=== PATIENT | female | born 1945 | race Caucasian/White ===

== ENCOUNTER 2020-08-26 09:28 | Observation (INO) | payer MEDICARE, SELFPAY ==
[2020-08-26] VITALS (8 sets, daily range): BP systolic 142–196; BP diastolic 63–101; PULSE 68–107; RESP 12–20; TEMP 35.3–37.1; O2SAT 95–98; BMI 24.0
--- NOTE | 2020-08-26 10:06 | XR_ITS ---
EXAMINATION: BILATERAL KNEE X-RAY CLINICAL INFORMATION: Fall COMPARISON: Left knee x-ray October 2013 TECHNIQUE: 4 views of each knee FINDINGS: Right: The bones are osteopenic. Bone alignment is normal. No fracture or dislocation is seen. There are small osteophytes at the patellofemoral joint. Joint spaces are otherwise normal. There is an osteophyte at the quadriceps tendon insertion to the patella. There is a small joint effusion. Left knee: The bones are osteopenic. Bone alignment is normal. No fracture or dislocation is seen. There are small osteophytes at the patellofemoral joint. There is no joint effusion. XR/XR knee RT 4V IMPRESSION: No fracture or dislocation seen. Osteopenia and degenerative changes.
--- NOTE | 2020-08-26 10:06 | XR_ITS ---
EXAMINATION: BILATERAL KNEE X-RAY CLINICAL INFORMATION: Fall COMPARISON: Left knee x-ray October 2013 TECHNIQUE: 4 views of each knee FINDINGS: Right: The bones are osteopenic. Bone alignment is normal. No fracture or dislocation is seen. There are small osteophytes at the patellofemoral joint. Joint spaces are otherwise normal. There is an osteophyte at the quadriceps tendon insertion to the patella. There is a small joint effusion. Left knee: The bones are osteopenic. Bone alignment is normal. No fracture or dislocation is seen. There are small osteophytes at the patellofemoral joint. There is no joint effusion. XR/XR knee LT 4V IMPRESSION: No fracture or dislocation seen. Osteopenia and degenerative changes.
--- NOTE | 2020-08-26 10:06 | ECG_ITS ---
Test Reason : RAPID HR Blood Pressure : / mmHG Vent. Rate : 106 BPM Atrial Rate : 147 BPM P-R Int : 224 ms QRS Dur : 084 ms QT Int : 356 ms P-R-T Axes : 074 017 060 degrees QTc Int : 472 ms Normal sinus rhythm with run of svt Anteroseptal infarct (cited on or before 18-AUG-2016) Abnormal ECG When compared with ECG of 21-DEC-2017 14:16, portion has Normal sinus rhythm and then goes into Multifocal atrial tachycardia Referred By: Yudelka Lyles Electronically Signed By:HIPOLITO VASQUEZ MD
--- NOTE | 2020-08-26 10:06 | CT_ITS ---
EXAMINATION: CT HEAD WITHOUT CONTRAST CLINICAL INFORMATION: Status post fall. Head injury. COMPARISON: None TECHNIQUE: Contiguous axial imaging was performed from the skull base to vertex without intravenous administration of contrast. This CT examination was performed using dose optimization techniques as appropriate, variously including the following: *Automated exposure control *Adjustment of mA and/or kV according to patient size (this includes techniques or standardized protocols for targeted exams where dose is matched to indication/reason for exam; i.e. extremities or head) *Use of iterative reconstruction technique DLP: 839 mGy-cm FINDINGS: There is no evidence of acute intracranial hemorrhage or territorial infarction. No abnormal mass effect or midline shift is seen. Frank to white matter differentiation is well preserved. No extra-axial fluid collections are identified. The lateral ventricles are symmetrical but moderately enlarged with mild dilatation of cortical sulci. There is diffuse periventricular hypodensity in both cerebral hemispheres without mass effect. The osseous structures and soft tissues are normal. The mastoid air cells and visualized portions of the paranasal sinuses are well aerated. CT/CT head/brain wo con IMPRESSION: No acute intracranial process seen. Cerebral atrophy with chronic small vessel ischemic changes in both cerebral hemispheres.
--- NOTE | 2020-08-26 10:06 | CT_ITS ---
EXAMINATION: CERVICAL SPINE CT WITHOUT CONTRAST CLINICAL INFORMATION: Fall COMPARISON: None TECHNIQUE: Axial images through the cervical spine without contrast. Sagittal and coronal reconstructions on the technologist workstation were performed. Patient dose 2 63 mg/cm. FINDINGS: The neck is extended. Bone alignment is otherwise normal. No fracture or dislocation is seen. There is degenerative spondylosis and degenerative disc disease at C3-C5-C6. There are degenerative changes at the C1 dens articulation. There is bilateral multilevel facet arthritis. Prevertebral soft tissues are normal. There is carotid calcification. There is biapical pleural and parenchymal scarring at the lung apices. CT/CT cervical spine wo con IMPRESSION: No fracture or dislocation seen. Degenerative changes.
[2020-08-26 11:39] LABS: Glucose Urine UA NEG (NEG); Leukocyte Esterase Urine 1+ (NEG); Nitrite Urine NEG (NEG); Urine Blood TRACE (NEG); Urine Ketones NEG (NEG); Urine Protein NEG (NEG-TRACE)
[2020-08-26 11:39] LABS: Basophils Absolute Auto 0.1 X10*3/uL (0.0-0.2); Basophils Percent Auto 0.7 % (0-2); Eosinophils Absolute Auto 0.3 X10*3/uL (0.0-0.4); Eosinophils Percent Auto 2.8 % (0-4); Hematocrit 41.6 % (37-47); Hemoglobin 13.7 g/dl (12.0-16.0); Imm Gran Abs Auto 0.02 X10*3/uL (0.00-0.03); Imm Gran Pct Auto 0.2 % (0.0-0.4); Lymphocytes Absolute Auto 1.5 X10*3/uL (1.2-4.9); MANUAL DIFF FLAG SCAN; Mean Corpuscular HGB Conc 32.9 g/dl (31.0-35.0); Mean Corpuscular Hemoglobin 31.4 pg (27.0-33.0); Mean Corpuscular Volume 95.4 fL (80-98); Monocytes Absolute Auto 0.6 X10*3/uL (0.1-1.2); Monocytes Percent Auto 6.4 % (2-11); Neutrophils Absolute Auto 6.5 X10*3/uL (2.0-8.3); Neutrophils Percent Auto 72.9 % (45-73); PLT CLUMP 1; Red Blood Count 4.36 X10*6/uL (4.20-5.50); Red Cell Distribution Width 12.6 % (11.0-16.0); SCAN SMEAR FLAG 1
[2020-08-26 11:42] LABS: Prothrombin Time 11.7 SEC (10.8-13.0)
[2020-08-26 11:52] LABS: Appearance Urine HAZY; Color Urine YELLOW
[2020-08-26 12:08] LABS: B Type Natriuretic Peptide 177 pg/mL (<100)
[2020-08-26 12:11] LABS: Alanine Aminotransferase 9 U/L (0-31); Albumin Level 3.6 g/dL (3.5-5.0); Alkaline Phosphatase 77 U/L (39-117); Anion Gap 15 (12-20); Aspartate Amino Transferase 20 U/L (5-31); Bilirubin Direct 0.3 mg/dL (0.0-0.5); Bilirubin Total 0.6 mg/dL (0.0-1.0); Blood Urea Nitrogen 15 mg/dL (9-16); Calcium 8.5 mg/dL (8.4-10.2); Carbon Dioxide 26 mmol/L (22-29); Chloride 105 mmol/L (96-108); Creatinine Clr Calc Pharmacy 48.1; Estimated Glomerular Filt Rate > 60; Glucose Random 93 mg/dL (60-115); Magnesium 1.9 mg/dL (1.6-2.6); Potassium 3.6 mmol/l (3.3-5.1); Sodium 142 mmol/L (135-145); Total Protein 7.7 g/dL (6.5-8.0)
[2020-08-26 12:14] LABS: Platelet Count 258 X10*3/uL (160-400)
[2020-08-26 12:15] LABS: SLIDE REVIEW VERIFIED
[2020-08-26 12:29] LABS: Bacteria Urine TRACE /LPF; RBC Urine 0-2 /HPF (0); Squamous Epithelial Cell Urine 1+ /LPF
--- NOTE | 2020-08-26 12:35 | ED.FALL ---
HPI - Fall General Chief Complaint: Fall Stated Complaint: fall, leg pain Time Seen by Provider: 08/26/20 09:49 Source: patient, EMS and other ([facility]mediate Records fro [facility]) Mode of arrival: EMS Limitations: other (Chronic history of dementia) History of Present Illness HPI Narrative: 75yoF c PMHx of vascular dementia, Churg yue syndrome, Atrial Tachycardia, HTN, HLD, Chronic back pain presenting via EMS after complaining of b/l leg pain to the Nurses at [facility]. I called and spoke to Monae from the [facility] and she reported that the patient was noted to be limping and was complaining of bilateral leg plane and told them that she had a fall. Monae From [facility] reported that she possibly had an unwitnessed fall over the weekend. Reports otherwise the patient for mentation has been at baseline. Patient is On aspirin otherwise no other blood thinners. Related Data Home Medications Medication Instructions Recorded Confirmed atorvastatin 1 tab PO DAILY 08/26/20 08/26/20 lisinopril 1 tab PO DAILY 08/26/20 08/26/20 metoprolol tartrate 1 tab PO BID 08/26/20 08/26/20 Allergies Allergy/AdvReac Type Severity Reaction Status Date / Time erythromycin base Allergy Mild VOMITING Unverified 06/18/20 14:49 [Erythromycin Base] Penicillins Allergy Mild HIVES Unverified 06/18/20 14:49 amoxicillin Allergy Unknown Verified 07/01/19 00:00 penicillin V Allergy Unknown Unverified 07/01/19 00:00 Biphosphonates Allergy Unknown Uncoded 07/01/19 00:00 Review of Systems Review of Systems: Constitutional : No changes in activity, No lethargy, No recent prior head injury, No agitation, No increased fussiness ENT/Mouth : No Ear Pain, No Nasal discharge/drainage Eyes: No Eye Pain, No Swelling, No Redness, No Foreign Body, No Vision Changes Cardiovascular : No Chest Pain, No SOB Respiratory : No Cough Gastrointestinal : No Nausea, No Vomiting, No abdominal Pain Genitourinary : No Dysuria, No Urinary Frequency, No Urinary Incontinence, No Urgency, No Flank Pain Musculoskeletal : + joint pain, No neck stiffness, No back pain/injury Skin : No lacerations Neuro : No unsteady gait, No Paresthesias, No Loss of Consciousness, No altered mental status, No Headache Yes all other systems are reviewed and are negative and Other ( Limited due to history of dementia) [facility] Past Medical History Attestation statement: The following information was validated with the patient. Medical History Dementia High cholesterol Hypertension Social History Social History Smoking Status: Never smoker Use of substances other than those prescribed or required for medical reasons: No Advance Directives: No Advance Directives Information Provided: Yes Physical Exam Vital Signs: Vital Signs: Last Vital Signs Temp 95.5 F L 08/26/20 14:00 Pulse 85 08/26/20 14:00 Resp 14 08/26/20 14:00 BP 178/73 H 08/26/20 14:00 Pulse Ox 98 08/26/20 11:48 Body Mass Index 24.0 Vital signs have been reviewed as normal and appeared to be correct. Blood pressure normal. Heart rate normal. Respiration rate normal. Temperature normal. Oxygen saturation normal. Appearance: Alert. Oriented to place and self not to time baseline per Intermediate. No acute distress. Head: Normal external exam. Normocephalic. Atraumatic. Able to rotate head bilaterally. Eyes: PERRLA. EOMI. No nystagmus noted. Conjunctiva and sclera normal. Eyelids normal. Corneal reflex normal. ENT: EAC normal. TM's Normal. no septal hematoma noted. No hemotympanum noted.Hearing normal. Pharynx normal. Uvula midline. tongue midline. Moist mucous membranes. No trismus noted. No drooling noted. No muffled voice noted. Neck: Normal inspection. Neck supple. FROM. No adenopathy. No meningeal signs. No neck mass noted. CVS: Normal heart rate and rhythm. Heart sound normal. No murmurs noted. Pulses normal throughout. Respiratory: No respiratory distress. Painless inspiration. Breath sounds normal. No wheezes/rales/rhonchi noted. Chest nontender. No accessory muscle usage noted or decreased air movement noted. Abdomen: Soft and nontender. Bowel sounds normal in all 4 quadrants. No distention noted. No organomegaly noted. No visible injury noted. Back: No CVA tenderness. Full range of motion noted. Skin: Skin warm and dry. Normal skin color. Normal skin turgor. No rashes/lesions/lacerations noted. Extremities: to right knee there is an abrasion c well healing scab. No surrounding erythema/ streaking /induration /fluctuance or signs of infection noted. TTP of left knee No obvious deformities noted. TTP of right ankle No obvious deformities noted. No lower extremity edema. All Extremities exhibit normal range of motion and all other's nontender. Able to shrug shoulders bilaterally and keep up against resistance. Neuro: Oriented. No motor deficit. No sensory deficit. Reflexes normal. Moving all extremities. No focal motor deficits. Cranial nerves II-XI intact bilaterally. Facial strength normal. Normal cognition. Speech normal. Strength 5/5 throughout. No pronator drift. No tremor noted. No fasciculations noted. Muscle tone normal throughout. No asterixis noted. [id number] test normal. Heel to rosen test normal. No rigidity noted. NIHSS score 0. Course Course Course Narrative: 10:10AM - 75yoF c PMHx of vascular dementia, Churg yue syndrome, Atrial Tachycardia, HTN, HLD, Chronic back pain presenting via EMS after complaining of b/l leg pain to the Nurses at [facility] after Sustaining an unwitnessed fall possibly over the weekend. Per skilled nursing records patient is at baseline. Patient denies any other injuries complaints or concerns at this time. - Plan: Labs, CT scan of brain/cervical spine, CTA of chest due to episodes of Tachycardia and unwitnessed fall to rule out PE or any other acute processes, CXR, EKG, Xray of b/l hips/pelvis, b/l knees and right ankle and re-evaluate. Reevaluation(s) Reevaluation #1: - Patient's troponin elevated at 11.9. BUN 177. Otherwise all other labs are within normal limits. UA within normal limits no evidence of UTI. CT scan of brain/cervical spine within normal limits no acute processes noted. CTA of chest negative for PE revealed old chronic fractures to her spine. X-ray of bilateral hips and pelvis / bilateral knees / right ankle within normal limits no acute processes noted. EKG sinus tachycardia no acute ischemic changes. - Therefore repeat troponin 3 hours after the 1st ordered. If negative will DC home with instructions return if any new or worsening symptoms and to follow up with primary care provider. Time: 14:02 Reevaluation #2: Second troponin 21.0 therefore CPK added at this time for possible rhabdo. We will plan to admit due to unknown cause of the patient's fall which could be related to her episodes of atrial tachycardia where she goes up to 160 beats per minute where we have noticed on the surveillance monitor here in the ED. Time: 16:46 MDM - Fall Medical Records Attestation: I reviewed the patient's medical records. Lab Data Attestation: I reviewed the patient's lab results. Result diagrams: 08/26/20 11:08/26/20 11: Labs: Lab Results 08/26/20 08/26/20 08/26/20 Range/Units 11:23 11: 11: WBC 9.0 (4.8-10.8) X10*3/uL RBC 4.36 (4.20-5.50) X10*6/uL Hgb 13.7 (12.0-16.0) g/dl Hct 41.6 (37-47) % MCV 95.4 (80-98) fL MCH 31.4 (27.0-33.0) pg MCHC 32.9 (31.0-35.0) g/dl RDW 12.6 (11.0-16.0) % Plt Count 258 (160-400) X10*3/uL MPV Not Reportable Immature Gran % (Auto) 0.2 (0.0-0.4) % Neut % (Auto) 72.9 (45-73) % Lymph % (Auto) 17.0 L (20-40) % Jewell % (Auto) 6.4 (2-11) % Eos % (Auto) 2.8 (0-4) % Baso % (Auto) 0.7 (0-2) % Lymph # (Auto) 1.5 (1.2-4.9) X10*3/uL Jewell # (Auto) 0.6 (0.1-1.2) X10*3/uL Eos # (Auto) 0.3 (0.0-0.4) X10*3/uL Baso # (Auto) 0.1 (0.0-0.2) X10*3/uL Abs Immat Gran (auto) 0.02 (0.00-0.03) X10*3/uL Absolute Neuts (auto) 6.5 (2.0-8.3) X10*3/uL Absolute Nucleated RBC 0.000 (0.0-0.012) X10*3/uL Nucleated RBC % (auto) 0.0 (0.0-0.2) /100WBC Smear Tech's Comments VERIFIED PT 11.7 (10.8-13.0) SEC INR 1.0 (0.9-1.1) Sodium 142 (135-145) mmol/L Potassium 3.6 (3.3-5.1) mmol/l Chloride 105 (96-108) mmol/L Carbon Dioxide 26 (22-29) mmol/L Anion Gap 15 (12-20) BUN 15 (9-16) mg/dL Creatinine 0.81 (0.5-1.4) mg/dL Estim Creat Clear Calc 48.1 Estimated GFR > 60 Random Glucose 93 (60-115) mg/dL Calcium 8.5 (8.4-10.2) mg/dL Magnesium 1.9 (1.6-2.6) mg/dL Total Bilirubin 0.6 (0.0-1.0) mg/dL Direct Bilirubin 0.3 (0.0-0.5) mg/dL AST 20 (5-31) U/L ALT 9 (0-31) U/L Alkaline Phosphatase 77 (39-117) U/L Total Creatine Kinase 370 H (26-140) U/L Troponin I High Sens (<3.5-17.0) ng/L B-Natriuretic Peptide (<100) pg/mL Total Protein 7.7 (6.5-8.0) g/dL Albumin 3.6 (3.5-5.0) g/dL Urine Color Urine Appearance Urine pH (5.0-8.0) Ur Specific [place] (1.005-1.025) Urine Protein (NEG-TRACE) MG/DL Urine Glucose (UA) (NEG) MG/DL Urine Ketones (NEG) MG/DL Urine Blood (NEG) Urine Nitrite (NEG) Ur Leukocyte Esterase (NEG) Urine RBC (0) /HPF Urine WBC (0-4) /HPF Ur Squamous Epith Cells /LPF Urine Bacteria /LPF 08/26/20 08/26/20 08/26/20 Range/Units 11:23 11:29 15:58 WBC (4.8-10.8) X10*3/uL RBC (4.20-5.50) X10*6/uL Hgb (12.0-16.0) g/dl Hct (37-47) % MCV (80-98) fL MCH (27.0-33.0) pg MCHC (31.0-35.0) g/dl RDW (11.0-16.0) % Plt Count (160-400) X10*3/uL MPV Immature Gran % (Auto) (0.0-0.4) % Neut % (Auto) (45-73) % Lymph % (Auto) (20-40) % Jewell % (Auto) (2-11) % Eos % (Auto) (0-4) % Baso % (Auto) (0-2) % Lymph # (Auto) (1.2-4.9) X10*3/uL Jewell # (Auto) (0.1-1.2) X10*3/uL Eos # (Auto) (0.0-0.4) X10*3/uL Baso # (Auto) (0.0-0.2) X10*3/uL Abs Immat Gran (auto) (0.00-0.03) X10*3/uL Absolute Neuts (auto) (2.0-8.3) X10*3/uL Absolute Nucleated RBC (0.0-0.012) X10*3/uL Nucleated RBC % (auto) (0.0-0.2) /100WBC Smear Tech's Comments PT (10.8-13.0) SEC INR (0.9-1.1) Sodium (135-145) mmol/L Potassium (3.3-5.1) mmol/l Chloride (96-108) mmol/L Carbon Dioxide (22-29) mmol/L Anion Gap (12-20) BUN (9-16) mg/dL Creatinine (0.5-1.4) mg/dL Estim Creat Clear Calc Estimated GFR Random Glucose (60-115) mg/dL Calcium (8.4-10.2) mg/dL Magnesium (1.6-2.6) mg/dL Total Bilirubin (0.0-1.0) mg/dL Direct Bilirubin (0.0-0.5) mg/dL AST (5-31) U/L ALT (0-31) U/L Alkaline Phosphatase (39-117) U/L Total Creatine Kinase (26-140) U/L Troponin I High Sens 11.9 21.0 H D (<3.5-17.0) ng/L B-Natriuretic Peptide 177 H (<100) pg/mL Total Protein (6.5-8.0) g/dL Albumin (3.5-5.0) g/dL Urine Color YELLOW Urine Appearance HAZY Urine pH 7.0 (5.0-8.0) Ur Specific [place] 1.010 (1.005-1.025) Urine Protein NEG (NEG-TRACE) MG/DL Urine Glucose (UA) NEG (NEG) MG/DL Urine Ketones NEG (NEG) MG/DL Urine Blood TRACE (NEG) Urine Nitrite NEG (NEG) Ur Leukocyte Esterase 1+ H (NEG) Urine RBC 0-2 (0) /HPF Urine WBC 1-4 (0-4) /HPF Ur Squamous Epith Cells 1+ /LPF Urine Bacteria TRACE /LPF Imaging Data Right ankle x-ray: Attestation: I personally reviewed and interpreted this imaging study as follows: Radiologist's impression: FINDINGS: Bone alignment is normal. No fracture or dislocation is seen. The ankle mortise is normal. Soft tissues are normal. There is a peripheral small plantar calcaneal spur. XR/XR ankle RT min 3V IMPRESSION: Normal right ankle. hip and pelvis x-ray: Attestation: I personally reviewed and interpreted this imaging study as follows: Radiologist's impression: FINDINGS: Bone alignment is normal. No fracture or dislocation is seen. The joint spaces are normal. The soft tissues are normal. There is evidence of atherosclerotic disease. XR/XR hip BI w PEL1V IMPRESSION: Normal pelvis and hips. CT scan of brain: Attestation: I personally reviewed and interpreted this imaging study as follows: Radiologist's impression: FINDINGS: There is no evidence of acute intracranial hemorrhage or territorial infarction. No abnormal mass effect or midline shift is seen. Frank to white matter differentiation is well preserved. No extra-axial fluid collections are identified. The lateral ventricles are symmetrical but moderately enlarged with mild dilatation of cortical sulci. There is diffuse periventricular hypodensity in both cerebral hemispheres without mass effect. The osseous structures and soft tissues are normal. The mastoid air cells and visualized portions of the paranasal sinuses are well aerated. CT/CT head/brain wo con IMPRESSION: No acute intracranial process seen. Cerebral atrophy with chronic small vessel ischemic changes in both cerebral hemispheres. cervical spine ct scan : Attestation: I personally reviewed and interpreted this imaging study as follows: Radiologist's impression: FINDINGS: The neck is extended. Bone alignment is otherwise normal. No fracture or dislocation is seen. There is degenerative spondylosis and degenerative disc disease at C3-C5-C6. There are degenerative changes at the C1 dens articulation. There is bilateral multilevel facet arthritis. Prevertebral soft tissues are normal. There is carotid calcification. There is biapical pleural and parenchymal scarring at the lung apices. CT/CT cervical spine wo con IMPRESSION: No fracture or dislocation seen. Degenerative changes. Chest CTA for PE: Attestation: I personally reviewed and interpreted this imaging study as follows: Radiologist's impression: IMPRESSION: No evidence of PE. No evidence of aortic dissection or aneurysm. Old compression fractures L1 and L2 vertebra. VTE: negative. knee xray: Attestation: I personally reviewed and interpreted this imaging study as follows: Radiologist's impression: FINDINGS: Right: The bones are osteopenic. Bone alignment is normal. No fracture or dislocation is seen. There are small osteophytes at the patellofemoral joint. Joint spaces are otherwise normal. There is an osteophyte at the quadriceps tendon insertion to the patella. There is a small joint effusion. Left knee: The bones are osteopenic. Bone alignment is normal. No fracture or dislocation is seen. There are small osteophytes at the patellofemoral joint. There is no joint effusion. XR/XR knee LT 4V IMPRESSION: No fracture or dislocation seen. Osteopenia and degenerative changes. ECG Data Attestation: I personally reviewed and interpreted this ECG as follows: ECG interpretation date: 08/26/20 ECG interpretation time: 09:44 Prior ECG tracings: available for review Interpretation: Sinus tachycardia with first-degree AV block with ventricular rate of 106 with a normal QRS duration normal QT / QTC interval. No acute ischemic changes noted. Similar when compared to prior on 12/21/2017. Critical Care Time Critical Care Time Critical Care Time: Yes Total Critical Care Time: 60 Attestation: I personally attest to this time spent taking care of the patient Discharge Plan Discharge Clinical Impression: Elevated troponin Fall Qualifiers: Encounter type: initial encounter Qualified Code(s): W19.XXXA - Unspecified fall, initial encounter Abrasion of knee Qualifiers: Encounter type: initial encounter Laterality: right Qualified Code(s): S80.211A - Abrasion, right knee, initial encounter Ankle sprain Qualifiers: Encounter type: initial encounter Involved ligament of ankle: unspecified ligament Laterality: right Qualified Code(s): S93.401A - Sprain of unspecified ligament of right ankle, initial encounter Knee sprain Qualifiers: Encounter type: initial encounter Involved ligament of knee: unspecified ligament Laterality: right Qualified Code(s): S83.91XA - Sprain of unspecified site of right knee, initial encounter Prescriptions: No Action atorvastatin 10 mg tablet 1 tab PO DAILY RF: 0 lisinopril 5 mg tablet 1 tab PO DAILY RF: 0 metoprolol tartrate 25 mg tablet 1 tab PO BID RF: 0
--- NOTE | 2020-08-26 12:53 | PC.NURSE ---
pt's son (iván) is in [facility] [place] room and he was updated on pt's status. mlp (willie) aware.
--- NOTE | 2020-08-26 13:00 | XR_ITS ---
EXAMINATION: XR BILATERAL HIPS WITH AP PELVIS CLINICAL INFORMATION: Fall. Limping. COMPARISON: Previous left hip x-ray October 2018 TECHNIQUE: AP view of the pelvis and 2 views of each hip were obtained. FINDINGS: Bone alignment is normal. No fracture or dislocation is seen. The joint spaces are normal. The soft tissues are normal. There is evidence of atherosclerotic disease. XR/XR hip BI w PEL1V IMPRESSION: Normal pelvis and hips.
--- NOTE | 2020-08-26 13:01 | XR_ITS ---
EXAMINATION: XR ANKLE, RIGHT CLINICAL INFORMATION: Fall. Pain. COMPARISON: None TECHNIQUE: AP, lateral, and mortise views of the right ankle. FINDINGS: Bone alignment is normal. No fracture or dislocation is seen. The ankle mortise is normal. Soft tissues are normal. There is a peripheral small plantar calcaneal spur. XR/XR ankle RT min 3V IMPRESSION: Normal right ankle.
--- NOTE | 2020-08-26 13:15 | CT_ITS ---
EXAMINATION: CT ANGIOGRAM OF THE CHEST WITH AND WITHOUT CONTRAST (CT PULMONARY ANGIOGRAM FOR PE) CLINICAL INFORMATION: Reason for Exam pt c fall c tachyacrdia and weakness COMPARISON: None TECHNIQUE: Prior to contrast administration, noncontrast localization images were obtained. Subsequently, multidetector volumetric imaging was performed from the thoracic inlet to below the diaphragms following the administration of 80 mL Omnipaque 350 intravenous contrast. No contrast reaction reported Sagittal, coronal, and MIP oblique sagittal reformatted images were obtained on the CT workstation, uploaded to PACS, and reviewed. This CT examination was performed using dose optimization techniques as appropriate, variously including the following: *Automated exposure control *Adjustment of mA and/or kV according to patient size (this includes techniques or standardized protocols for targeted exams where dose is matched to indication/reason for exam; i.e. extremities or head) *Use of iterative reconstruction technique Total exam dose-length product 220 mGy-cm FINDINGS: QUALITY OF STUDY/CONTRAST BOLUS: Satisfactory. PULMONARY ARTERIES: No central or segmental pulmonary emboli. THORACIC AORTA: No aneurysm or dissection. LUNG: No focal consolidation, nodules or masses. PLEURA: No pleural effusion or pneumothorax. MEDIASTINUM: The thyroid lobes are symmetrical and normal. The central trachea and bronchi widely patent. The heart size and the great vessels are normal caliber. No abnormal size medial mass or lymph node seen. There is atherosclerotic calcification coronary arteries. CHEST WALL/AXILLA: No axillary or internal mammary lymphadenopathy. OSSEOUS STRUCTURES: Old compression fractures L1 and L2 vertebra. No lytic or sclerotic process seen. UPPER ABDOMEN: Visualized liver, spleen and bilateral adrenal glands are unremarkable. No reflux of contrast into the hepatic veins to suggest elevated right heart pressures. CT/CT angio chest PE protocol IMPRESSION: No evidence of PE. No evidence of aortic dissection or aneurysm. Old compression fractures L1 and L2 vertebra. VTE: negative.
[2020-08-26 13:18] LABS: Troponin-I High Sensitivity 11.9 ng/L (<3.5-17.0)
[2020-08-26] MEDS: iohexoL 350 MG/ML 100 ML INFUS..BTL IV (14:07)
[2020-08-26] MEDS: 0.9 % Sodium Chloride 1,000 ML 999 ML IVCONT (17:34)
--- NOTE | 2020-08-26 17:36 | P.HPHOSP_ITS ---
History of Present Illness Date of Service: 08/26/20 Chief Complaint: Fall 3 days ago 75 year old female with vascular dementia with behavioral disturbance, HTN, HLD, history of atrial tachycardia. She comes from assistance living facility ([facility] [place]) where she reportedly fell 3 days ago and was noted to be limping today. She is very vonfused and was not able to give me history. When I called the facility to get additional history, I was told that all the nurses have left the build therefore history was obtained from reviewing the ED record and scant documentation from the facility. No advanced directive record. In ED she is noted to frequent becoming intermittently tachcardic which is consistent with her history ECG sinus tachyardia and was not different from old ECG. Troponin was 11, then 21. A slew of xrays done including both knees, CXR, head CT, pelvic/hip, ankle and chest CT, Cervical spine CT show no acute abnormalities. I spoke to son over the phone who stated that this morning patient called ambulance service at [facility] to be brought to hospital, patient is at [facility], she also stated that she had falling walking in the street--not the case. Son says he is unclear on circumstances surounding the fall and facility and said they were unclear or were aware that she had fallen Review of Systems Review of Systems: Gen: no fever Resp: no sob, no cough CV: no chest, no [place], no leg edema GI: No n/v, no abd pain Neuro: +confusion [facility] Medical History (Updated 08/26/20 @ 17:39 by Roberto Carlos Abdalla MD) Atrial tachycardia Chronic back pain Churg-Cesar syndrome Dementia GERD (gastroesophageal reflux disease) High cholesterol Hypertension Vascular dementia with behavior disturbance Pertinent family history: no additional information available Surgical History History of cholecystectomy History of laminectomy Social History Smoking Status: Never smoker Use of substances other than those prescribed or required for medical reasons: No Advance Directives: No Advance Directives Information Provided: Yes Meds Allergies Allergy/AdvReac Type Severity Reaction Status Date / Time erythromycin base Allergy Mild VOMITING Unverified 06/18/20 14:49 [Erythromycin Base] Penicillins Allergy Mild HIVES Unverified 06/18/20 14:49 amoxicillin Allergy Unknown Verified 07/01/19 00:00 penicillin V Allergy Unknown Unverified 07/01/19 00:00 Biphosphonates Allergy Unknown Uncoded 07/01/19 00:00 Home Medications Medication Instructions Recorded Confirmed Type atorvastatin 1 tab PO DAILY 08/26/20 08/26/20 History lisinopril 1 tab PO DAILY 08/26/20 08/26/20 History metoprolol tartrate 1 tab PO BID 08/26/20 08/26/20 History Physical Exam Vital Signs and Narrative: Vital Signs: Last Vital Signs Temp 98.4 F 08/26/20 17:30 Pulse 103 H 08/26/20 17:30 Resp 17 08/26/20 17:30 BP 183/101 H 08/26/20 17:30 Pulse Ox 96 08/26/20 17:30 Body Mass Index 24.0 Constitutional Awake and Alert, No apparent distress Neck Supple, No lymphadenopathy Cardiovascular iregular, S1S2 Respiratory Lungs clear, No respiratory distress Gastrointestinal Non tender, Non-distended Skin No rash, old bruse around knee Neurological Alert & oriented x3 Psychological Appropriate affect Results Labs CBC and Chem 7: 08/26/20 11:23 08/26/20 11:23 Labs: BNP 177, HiSens trop 11-->21 ECG sinus tach Imaging Radiologist's Impressions: Impressions Cervical Spine CT 08/26/20 10:06 IMPRESSION: No fracture or dislocation seen. Degenerative changes. Chest X-Ray 08/26/20 10:06 IMPRESSION: No fracture or dislocation seen. Degenerative changes. Head CT 08/26/20 10:06 IMPRESSION: No acute intracranial process seen. Cerebral atrophy with chronic small vessel ischemic changes in both cerebral hemispheres. Knee X-Ray 08/26/20 10:06 IMPRESSION: No fracture or dislocation seen. Osteopenia and degenerative changes. Knee X-Ray 08/26/20 10:06 IMPRESSION: No fracture or dislocation seen. Osteopenia and degenerative changes. Hip/Pelvis X-Ray 08/26/20 13:00 IMPRESSION: Normal pelvis and hips. Ankle X-Ray 08/26/20 13:01 IMPRESSION: Normal right ankle. Chest CTA 08/26/20 13:15 IMPRESSION: No evidence of PE. No evidence of aortic dissection or aneurysm. Old compression fractures L1 and L2 vertebra. VTE: negative. Assessment and Plan (1) Fall: Qualifiers: Encounter type: initial encounter Qualified Code(s): W19.XXXA - Unspecified fall, initial encounter Status: Acute (2) Atrial tachycardia: Status: Acute (3) Vascular dementia with behavior disturbance: Status: Acute (4) Abrasion of knee: Qualifiers: Encounter type: initial encounter Laterality: right Qualified Code(s): S80.211A - Abrasion, right knee, initial encounter Status: Acute 75 year female with dementia, HTN, HLD, history of shurg-alma syndrome here with fall 3 days ago, and in sinus and ? syncope Fall, appear mechanical--no injury from imaging -Monitor and rule posibility of arrythmia related syncope Atrial tachycardia--this a well documented history and is not a new phenomenon -continue Metoprolol and HR is not controlled, seek the aid of cardiology Elevate troponin--insignficant, no further w/u at this time HTN--BP is high, I cannot verified if she took her meds today or not, she takes metoprolol and Lsinopril and these will be continued HLD--continue Lipitor SC Heparin for DVT prophylaxis I reached out to son Filipe Elaine [phone] who confirmed code status to be full
--- NOTE | 2020-08-26 20:08 | PC.NURSE ---
pt asked to use bathroom. Gait unsteady, heart rate to 160 with activity. Pt used bedpan, voided scant amount of urine. she is awake, oriented to self and place but confused. asked primary nurse about pt' mental status, confusion is baseline. at time oif note pt's heart rate is 145 then down to 97, sinus, with intermittent episodes of tachycardia in the 150's.
[2020-08-26 20:31] LABS: COVID-19 Test Negative (Negative); IDNOW Serial# 9DD0AD1C
[2020-08-26] MEDS: Heparin Sodium,Porcine 5,000 UNIT/ML VIAL 5000 UNIT SUBCUT (21:19)
[2020-08-27] VITALS (7 sets, daily range): BP systolic 112–165; BP diastolic 58–75; PULSE 64–96; RESP 18–19; TEMP 36.1–36.8; O2SAT 96–99
[2020-08-27] MEDS: 0.9 % Sodium Chloride Flush 3 ML SYRINGE IVFLUSH ×3 (00:03→16:57)
[2020-08-27] MEDS: Metoprolol Tartrate 25 MG TABLET PO (09:03)
[2020-08-27] MEDS: Heparin Sodium,Porcine 5,000 UNIT/ML VIAL 5000 UNIT SUBCUT (09:03)
[2020-08-27] MEDS: lisinopriL 5 MG TABLET PO (09:03)
--- NOTE | 2020-08-27 11:02 | HO.PM.IMPN ---
Subjective Subjective Date of Service: 08/27/20 Interval History: no complaints Cardiovascular Cardiovascular: Reports no additional cardiovascular complaints Respiratory Respiratory: Reports no additional respiratory complaints Physical Exam Vital Signs: Vital Signs: Last Vital Signs Temp 98.2 F 08/27/20 07:07 Pulse 65 08/27/20 09:03 Resp 18 08/27/20 07:07 BP 160/71 H 08/27/20 09:03 Pulse Ox 96 08/27/20 07:07 Body Mass Index 24.0 General: AO X 2, no acute distress Resp: CTA bilateral CVS: S1,S2,RRR GI: soft, non tender, non distended Neuro: motor grossly intact Psych: impaired insight Objective Data Current Medications Generic Name Dose Route Start Last Admin Trade Name Freq PRN Reason Stop Dose Admin Acetaminophen 650 mg 08/26/20 20:40 Acetaminophen 325 Mg Tablet PO Q6H PRN Pain, Mild (Pain Scale 1-3) Al Hydroxide/Mg Hydroxide 30 ml 08/26/20 20:40 Magnesium Hydrox/Alum Hydrox 30 Ml Oral.Susp PO Q4H PRN Heartburn/Nausea Atorvastatin Calcium 10 mg 08/27/20 21:00 Atorvastatin Calcium 10 Mg Tablet PO BEDTIME [facility] Heparin Sodium (Porcine) 5,000 unit 08/26/20 21:00 08/27/20 09:03 Heparin Sodium,Porcine 5,000 Unit/Ml Vial SUBCUT 5,000 unit Q12H [facility] Administration Lisinopril 5 mg 08/27/20 09:00 08/27/20 09:03 Lisinopril 5 Mg Tablet PO 5 mg DAILY [facility] Administration Protocol Magnesium Hydroxide 30 ml 08/26/20 20:40 Milk Of Magnesia 30 Ml Oral.Susp PO DAILY PRN Constipation Metoprolol Tartrate 50 mg 08/27/20 21:00 Metoprolol Tartrate 25 Mg Tablet PO BID [facility] Protocol Pharmacy Consult 1 each 08/26/20 16:49 Consult Rx Perform Med Rec MISCELLANE ONCE PRN Consult order Sodium Chloride 3 ml 08/27/20 00:00 08/27/20 09:02 0.9 % Sodium Chloride Flush 3 Ml Syringe IVFLUSH 3 ml QSHIFT [facility] Administration Labs CBC & Chem 7: 08/26/20 11:23 08/26/20 11:23 Microbiology Microbiology Results: Microbiology 08/26/20 Unknown Urine clean catch - Clean Catch Midstream Urine Culture - Final Assessment and Plan (1) Fall: Status: Acute (2) Atrial tachycardia: Status: Acute (3) Vascular dementia with behavior disturbance: Status: Acute (4) Abrasion of knee: Status: Acute Assessment and Plan: 75 year female with dementia, HTN, HLD, history of shurg-alma syndrome here with fall 3 days ago, and in sinus and ? syncope Fall, appear mechanical--no injury from imaging PT atrial tachycardia will increase metoprolol to 50mg bid, cardio eval, tele monitoring HTN metoprolol lisinopril HLD continue Lipitor
--- NOTE | 2020-08-27 11:35 | P.CONCA_ITS ---
History of Present Illness History of Present Illness Date of Service: 08/27/20 Requesting physician: Rasheed Juarez Chief complaint: fall, atrial tachycardia Narrative: pleasant 75-year-old female with vascular dementia and background of atrial tachycardia who is admitted with the fall. She is describing that she was going uphill when she fell. She denies any black out or syncope. She denies any chest discomfort shortness of breath. She has no palpitations. She came to the ER and was going in and out of atrial tachycardia. She has known history of that. She is saying she did not feel anything different. Right now feeling good and has no symptoms. Review of Systems Review of Systems: Yes all other systems are reviewed and are negative [facility] Past Medical History Medical History Atrial tachycardia Chronic back pain Churg-Cesar syndrome Dementia GERD (gastroesophageal reflux disease) High cholesterol Hypertension Vascular dementia with behavior disturbance Surgical History Surgical History History of cholecystectomy History of laminectomy Social History Social History Household Members: None Housing: Assisted Living Facility Do you presently have visiting nurse or other home services: Yes Smoking Status: Never smoker Use of substances other than those prescribed or required for medical reasons: No Do you feel safe in your current relationship?: No Current Relationship Advance Directives: No Advance Directives Information Provided: Yes Do you have thoughts of harming others: None Do you have a plan to hurt others: No Plan Recently lost weight without trying: No Meds Allergies Allergy/AdvReac Type Severity Reaction Status Date / Time erythromycin base Allergy Mild VOMITING Verified 08/26/20 21:18 [Erythromycin Base] Penicillins Allergy Mild HIVES Verified 08/26/20 21:18 amoxicillin Allergy Unknown Hives Verified 08/26/20 21:18 penicillin V Allergy Unknown Hives Verified 08/26/20 21:18 Biphosphonates Allergy Unknown Unknown Uncoded 08/26/20 21:18 Home Medications Medication Instructions Recorded Confirmed Type atorvastatin 1 tab PO DAILY 08/26/20 08/26/20 History lisinopril 1 tab PO DAILY 08/26/20 08/26/20 History metoprolol tartrate 1 tab PO BID 08/26/20 08/26/20 History Physical Exam Vital Signs: Vital Signs: Last Vital Signs Temp 98.2 F 08/27/20 07:07 Pulse 65 08/27/20 09:03 Resp 18 08/27/20 07:07 BP 160/71 H 08/27/20 09:03 Pulse Ox 96 08/27/20 07:07 Body Mass Index 24.0 GENERAL APPEARANCE: in no acute distress, well developed, well nourished. HEENT: unremarkable. HEAD: normocephalic, atraumatic. NECK/THYROID: no carotid bruit, no jugular venous distention. SKIN: no suspicious lesions, warm and dry. HEART: no murmurs, regular rate and rhythm, S1, S2 normal. LUNGS: clear to auscultation bilaterally. ABDOMEN: normal, bowel sounds present, soft, nontender, nondistended. EXTREMITIES: Abrasion right leg PERIPHERAL PULSES: equal. NEUROLOGIC: nonfocal. PSYCH: mood/affect full range. Results Labs and Meds Result diagrams: 08/26/20 11:23 08/26/20 11:23 Lab results: Laboratory Results - last 24 hr 08/26/20 08/26/20 08/26/20 11:23 11:23 11:23 WBC 9.0 RBC 4.36 Hgb 13.7 Hct 41.6 MCV 95.4 MCH 31.4 MCHC 32.9 RDW 12.6 Plt Count 258 MPV Not Reportable Immature Gran % (Auto) 0.2 Neut % (Auto) 72.9 Lymph % (Auto) 17.0 L Miner % (Auto) 6.4 Eos % (Auto) 2.8 Baso % (Auto) 0.7 Lymph # (Auto) 1.5 Miner # (Auto) 0.6 Eos # (Auto) 0.3 Baso # (Auto) 0.1 Abs Immat Gran (auto) 0.02 Absolute Neuts (auto) 6.5 Absolute Nucleated RBC 0.000 Nucleated RBC % (auto) 0.0 Smear Tech's Comments VERIFIED PT 11.7 INR 1.0 Sodium 142 Potassium 3.6 Chloride 105 Carbon Dioxide 26 Anion Gap 15 BUN 15 Creatinine 0.81 Estim Creat Clear Calc 48.1 Estimated GFR > 60 Random Glucose 93 Calcium 8.5 Magnesium 1.9 Total Bilirubin 0.6 Direct Bilirubin 0.3 AST 20 ALT 9 Alkaline Phosphatase 77 Total Creatine Kinase 370 H Troponin I High Sens B-Natriuretic Peptide Total Protein 7.7 Albumin 3.6 Urine Color Urine Appearance Urine pH Ur Specific [place] Urine Protein Urine Glucose (UA) Urine Ketones Urine Blood Urine Nitrite Ur Leukocyte Esterase Urine RBC Urine WBC Ur Squamous Epith Cells Urine Bacteria COVID-19 ([facility]) COVID-19 Clin Com 08/26/20 08/26/20 08/26/20 11:23 11:29 15:58 WBC RBC Hgb Hct MCV MCH MCHC RDW Plt Count MPV Immature Gran % (Auto) Neut % (Auto) Lymph % (Auto) Miner % (Auto) Eos % (Auto) Baso % (Auto) Lymph # (Auto) Miner # (Auto) Eos # (Auto) Baso # (Auto) Abs Immat Gran (auto) Absolute Neuts (auto) Absolute Nucleated RBC Nucleated RBC % (auto) Smear Tech's Comments PT INR Sodium Potassium Chloride Carbon Dioxide Anion Gap BUN Creatinine Estim Creat Clear Calc Estimated GFR Random Glucose Calcium Magnesium Total Bilirubin Direct Bilirubin AST ALT Alkaline Phosphatase Total Creatine Kinase Troponin I High Sens 11.9 21.0 H D B-Natriuretic Peptide 177 H Total Protein Albumin Urine Color YELLOW Urine Appearance HAZY Urine pH 7.0 Ur Specific [place] 1.010 Urine Protein NEG Urine Glucose (UA) NEG Urine Ketones NEG Urine Blood TRACE Urine Nitrite NEG Ur Leukocyte Esterase 1+ H Urine RBC 0-2 Urine WBC 1-4 Ur Squamous Epith Cells 1+ Urine Bacteria TRACE COVID-19 ([facility]) COVID-19 Clin Com 08/26/20 19:55 WBC RBC Hgb Hct MCV MCH MCHC RDW Plt Count MPV Immature Gran % (Auto) Neut % (Auto) Lymph % (Auto) Miner % (Auto) Eos % (Auto) Baso % (Auto) Lymph # (Auto) Miner # (Auto) Eos # (Auto) Baso # (Auto) Abs Immat Gran (auto) Absolute Neuts (auto) Absolute Nucleated RBC Nucleated RBC % (auto) Smear Tech's Comments PT INR Sodium Potassium Chloride Carbon Dioxide Anion Gap BUN Creatinine Estim Creat Clear Calc Estimated GFR Random Glucose Calcium Magnesium Total Bilirubin Direct Bilirubin AST ALT Alkaline Phosphatase Total Creatine Kinase Troponin I High Sens B-Natriuretic Peptide Total Protein Albumin Urine Color Urine Appearance Urine pH Ur Specific [place] Urine Protein Urine Glucose (UA) Urine Ketones Urine Blood Urine Nitrite Ur Leukocyte Esterase Urine RBC Urine WBC Ur Squamous Epith Cells Urine Bacteria COVID-19 ([facility]) Negative COVID-19 Clin Com See Note Assessment and Plan (1) Atrial tachycardia: Status: Acute 75 year female who is presenting with the mechanical fall. She has been noticed to have runs of atrial tachycardia and mildly abnormal troponin. I do not think she has ACS. No further workup is required for that. In terms of atrial tachycardia she has been in and out of that rhythm and has no symptoms. I doubt that atrial tachycardia is the cause for her presentation. Her blood pressure is elevated right now. I think 1 possibilities that we stop the metoprolol and put her on Cardizem 120 mg which may control blood pressure as well as with the atrial arrhythmia. Thank you for allowing me to participate in the care of your patient. Please feel free to contact me if you have any questions.
[2020-08-27] MEDS: Haloperidol Lactate 5 MG/ML VIAL IV (13:59)
[2020-08-28] VITALS (9 sets, daily range): BP systolic 130–188; BP diastolic 70–87; PULSE 54–156; RESP 18–20; TEMP 36–37.1; O2SAT 95–99
[2020-08-28 06:29] LABS: MANUAL DIFF FLAG NO
[2020-08-28 07:17] LABS: Basophils Absolute Auto 0.1 X10*3/uL (0.0-0.2); Basophils Percent Auto 0.7 % (0-2); Eosinophils Absolute Auto 0.5 X10*3/uL (0.0-0.4); Eosinophils Percent Auto 6.9 % (0-4); Hematocrit 38.9 % (37-47); Hemoglobin 12.8 g/dl (12.0-16.0); Imm Gran Abs Auto 0.03 X10*3/uL (0.00-0.03); Imm Gran Pct Auto 0.4 % (0.0-0.4); Lymphocytes Absolute Auto 1.3 X10*3/uL (1.2-4.9); Lymphocytes Percent Auto 16.8 % (20-40); Mean Corpuscular HGB Conc 32.9 g/dl (31.0-35.0); Mean Corpuscular Hemoglobin 30.8 pg (27.0-33.0); Mean Corpuscular Volume 93.5 fL (80-98); Mean Platelet Volume 11.6 fL (9.4-12.3); Monocytes Absolute Auto 0.7 X10*3/uL (0.1-1.2); Monocytes Percent Auto 8.7 % (2-11); Neutrophils Percent Auto 66.5 % (45-73); Platelet Count 292 X10*3/uL (160-400); Red Blood Count 4.16 X10*6/uL (4.20-5.50); Red Cell Distribution Width 12.1 % (11.0-16.0); White Blood Count 7.6 X10*3/uL (4.8-10.8)
[2020-08-28 08:04] LABS: Anion Gap 13 (12-20); Blood Urea Nitrogen 15 mg/dL (9-16); Calcium 8.1 mg/dL (8.4-10.2); Carbon Dioxide 33 mmol/L (22-29); Chloride 100 mmol/L (96-108); Creatinine Clr Calc Pharmacy 49.9; Estimated Glomerular Filt Rate > 60; Glucose Fasting 80 mg/dL (60-99); Potassium 3.6 mmol/l (3.3-5.1); Sodium 142 mmol/L (135-145)
--- NOTE | 2020-08-28 08:56 | P.CDIC_ITS ---
CDI Concurrent Query Service Date: 08/28/20 Documentation Clarification: Please clarify if you are treating a proba ble/suspected/likely or confirmed: Rhabdomyolysis Traumatic Rhabdomyolysis Please specify if known or other Provider Response: Other Other Diagnosis: no rhabdo PLEASE DO NOT DELETE/MODIFY EXISTING CONTENT Additional information is needed in order to code to the highest accuracy and appropriate Severity of Illness (SOI). Please clarify the information noted below in your progress notes and discharge summary. Risk Factors/Clinical Indicators/Treatments ED: Course - Reevaluation #2 - secondary to troponin 21.0 therefore CPR added at this time for possible Rhabdo. CPK 370 H hazy urine Trace bacteria Unwitnessed fall at [facility] - Abrasion to right knee, Sprain Ankle and right knee. CDS: Radha Nunes CCS, CDIS Contact Number: [phone] Please Review the information above and exercise your independent professional judgment in responding to the query. If you concur, pleas document in the PROGRESS NOTES and DISCHARGE SUMMARY. If you do not agree with the query, please document in the query above. THIS QUERY IS PART OF THE PERMANENT MEDICAL RECORD
[2020-08-28] MEDS: Heparin Sodium,Porcine 5,000 UNIT/ML VIAL 5000 UNIT SUBCUT ×2 (09:00→21:26)
--- NOTE | 2020-08-28 09:01 | MHC.CM.PN ---
CM attempted to contact pts son, Filipe ([phone]), to gather information and discuss DC plan. VM message left requesting a return call.
[2020-08-28] MEDS: 0.9 % Sodium Chloride Flush 3 ML SYRINGE IVFLUSH ×2 (09:02→17:11)
[2020-08-28] MEDS: lisinopriL 5 MG TABLET PO (09:03)
--- NOTE | 2020-08-28 10:53 | P.PNIM_ITS ---
Subjective Subjective Date of Service: 08/28/20 Interval History: paranoid delusions Cardiovascular Cardiovascular: Reports no additional cardiovascular complaints Respiratory Respiratory: Reports no additional respiratory complaints Physical Exam Vital Signs: Vital Signs: Last Vital Signs Temp 96.9 F 08/28/20 07:44 Pulse 97 08/28/20 09:03 Resp 20 08/28/20 07:44 BP 166/86 H 08/28/20 09:03 Pulse Ox 98 08/28/20 09:03 Body Mass Index 24.0 General: Alert, Resp: CTA bilateral CVS: S1,S2,RRR GI: soft, non tender, non distended Neuro: motor grossly intact Psych: impaired insight Objective Data Current Medications Generic Name Dose Route Start Last Admin Trade Name Freq PRN Reason Stop Dose Admin Acetaminophen 650 mg 08/26/20 20:40 Acetaminophen 325 Mg Tablet PO Q6H PRN Pain, Mild (Pain Scale 1-3) Al Hydroxide/Mg Hydroxide 30 ml 08/26/20 20:40 Magnesium Hydrox/Alum Hydrox 30 Ml Oral.Susp PO Q4H PRN Heartburn/Nausea Atorvastatin Calcium 10 mg 08/27/20 21:00 08/27/20 23:09 Atorvastatin Calcium 10 Mg Tablet PO Not Given BEDTIME [facility] Diltiazem HCl 120 mg 08/28/20 18:00 Diltiazem Hcl Cd 120 Mg Cap.Er.Deg PO DAILY [facility] Protocol Heparin Sodium (Porcine) 5,000 unit 08/26/20 21:00 08/28/20 09:00 Heparin Sodium,Porcine 5,000 Unit/Ml Vial SUBCUT 5,000 unit Q12H [facility] Administration Lisinopril 5 mg 08/27/20 09:00 08/28/20 09:03 Lisinopril 5 Mg Tablet PO 5 mg DAILY [facility] Administration Protocol Magnesium Hydroxide 30 ml 08/26/20 20:40 Milk Of Magnesia 30 Ml Oral.Susp PO DAILY PRN Constipation Pharmacy Consult 1 each 08/26/20 16:49 Consult Rx Perform Med Rec MISCELLANE ONCE PRN Consult order Sodium Chloride 3 ml 08/27/20 00:00 08/28/20 09:02 0.9 % Sodium Chloride Flush 3 Ml Syringe IVFLUSH 3 ml QSHIFT [facility] Administration Labs CBC & Chem 7: 08/28/20 05:28 08/28/20 05:28 Microbiology Microbiology Results: Microbiology 11/25/20 Unknown Urine clean catch - Clean Catch Midstream Urine Culture - Final Assessment and Plan (1) Fall: Status: Acute (2) Atrial tachycardia: Status: Acute (3) Vascular dementia with behavior disturbance: Status: Acute (4) Abrasion of knee: Status: Acute Assessment and Plan: 75 year female with dementia, HTN, HLD, history of shurg-alma syndrome here with fall 3 days ago, and in sinus and ? syncope Fall, appear mechanical--no injury from imaging Physical therapist recommending PT, but in a setting that would be beneficial given patient's dementia with paranoid delusions atrial tachycardia cardio appreciated, changed metoprolol to cardizewm 120mg daily HTN cardizem lisinopril HLD continue Lipitor
--- NOTE | 2020-08-28 13:45 | MHC.CM.PN ---
RACHEL called [place] at [facility] and spoke to pts nurse, Lila who reports the pt lives in an independent apartment and TENANT COORDINATOR only received assistance with medication. She reports the pt typically is independent with all care and walks to the dining lyle. Lila reports if the pt requires a VNA for PT at [facility] they prefer [facility] however the pt will need to be able to independently care for herself prior to returning.
--- NOTE | 2020-08-28 14:05 | MHC.CM.PN ---
CM left a second VM message for pts son/HCP, Filipe ([phone]) requesting a return call. Pt unable to return to her independent living facility at this time due to confusion. CM will discuss privately paying for a rehab facility once son is contacted.
--- NOTE | 2020-08-28 14:37 | MHC.CM.PN ---
RACHEL spoke to pts son, Filipe ([phone]) who reports the pt is confused at baseline due to dementia. He reports he spoke to her recently on the phone and she was more confused that she had been the last time he had spoken to her. He says when he spoke to her nurse at [facility] she stated it was just the pts dementia. Filipe reports the pt is likely more confused due to the change in environment and will likely get agitated by not being allowed to get up when she wants. he reports the pt has had VNA in the past and did not respond well to it. He reports the VNA agency discharged her because they felt it was unsafe as the pt was becoming agitated and aggressive. He reports she also went to acute rehab in the past and really liked it. he feels [facility] sending a VNA for PT as long as they know that she may not respond well. RACHEL will arrange home PT when the pt discharges and inform them that they should discontinue services if the pt does not respond well to them. Filipe reports he feels the pt will do better when she returns home and would like her sent by [facility] when she is discharged
--- NOTE | 2020-08-28 14:58 | P.F2F_ITS ---
Service Date Service Date: 08/29/20 Reasons for Services Homebound: Leaving the home is medically contraindicated at this time without the asist of a device and/or another person due th the listed conditions above and below. Certification: Based on the above findings, I certify that this patient is confined to the home and needs intermittent senior living care, physical therapy and/or speech therapy, or continues to need occupational therapy. The patient is under my care, and I have initiated the establishment of the plan of care. The patient will be followed by a physician who will periodically review the plan of care.
--- NOTE | 2020-08-28 14:59 | P.DS_ITS ---
DS: Providers Provider Date of admission: 08/26/20 18:24 Primary care physician: Unknown Physician Consults: 08/27/20 10:00 Consult to Cardiology Routine Consulting Provider: Mikey Jeronimo Reason for consultation: atrial tach, ?syncope vs mechanical fall DS: Diagnosis Discharge Diagnosis (1) Fall: Status: Acute (2) Atrial tachycardia: Status: Acute (3) Vascular dementia with behavior disturbance: Status: Acute (4) Abrasion of knee: Status: Acute DS: Medications Discharge Medications Home Medications: Home Medications Medication Instructions Recorded Confirmed atorvastatin 1 tab PO DAILY 08/26/20 08/26/20 lisinopril 1 tab PO DAILY 08/26/20 08/26/20 Previous Rx's Medication Instructions Recorded diltiazem HCl [Cardizem CD] 120 mg PO DAILY #30 cap 08/28/20 DS: Summary Hospital Course Hospital Course: patient was admitted for falls. She was noted to have Intermittent atrial Tachycardia. she was seen by Cardiology felt that this was unlikely to be etiology for falls. Patient is asymptomatic and does not require further workup. He did recommend changing metoprolol to Cardizem CD 120 mg daily. Patient was seen by Physical therapy who felt that while patient did need some physical therapy, doing so at a [place] [facility] facility would be more detrimental due to patient's dementia with paranoid behaviors. Therefore, after discussion with patient's son decision was made to send patient back to her assisted living with home PT. In order to balance the risks of further falls with the risks of continued mental deterioration due to being in a foreign environment and/or interactions with people she is not familiar with. Time Spent with Patient Time attestation: Total time spent providing and/or coordinating discharge services: Physical Exam Vital Signs: Vital Signs: Last Vital Signs Temp 96.8 F 08/28/20 11:49 Pulse 86 08/28/20 11:49 Resp 18 08/28/20 11:49 BP 155/87 H 08/28/20 11:49 Pulse Ox 98 08/28/20 11:49 Body Mass Index 24.0 DS: Data Data Completed and Pending Labs on day of discharge: 08/26/20 Urine Culture Routine 08/26/20 10:06 ECG 12 lead EKG Stat EKG Documentation DIRECTED CT cervical spine wo con Stat CT head/brain wo con Stat XR chest 2V Stat XR knee LT 4V Stat XR knee RT 4V Stat 08/26/20 11:23 B Type Natriuretic Peptide Stat Basic Metabolic Panel Stat Complete Blood Count Auto Diff Stat Creatine Kinase Total Stat Liver Panel Stat Magnesium Stat Prothrombin Time INR Stat SLIDE REVIEW Stat Troponin-I High Sensitivity Stat 08/26/20 13:00 XR hip BI w PEL1V Stat 08/26/20 13:01 XR ankle RT min 3V Stat 08/26/20 13:05 Add Laboratory Test Stat 08/26/20 13:15 CT angio chest PE protocol Stat 08/26/20 14:06 iohexoL 350 MG/ML [Omnipaque 350 MG/ML] 100 ml IV ONCE ONE 08/26/20 15:58 Troponin-I High Sensitivity Stat 08/26/20 16:48 Add Laboratory Test Stat 08/26/20 16:59 0.9 % Sodium Chloride [Ns] 1,000 ml IVCONT 999 mls/hr 08/26/20 18:19 Transfer Order Routine 08/26/20 19:55 COVID-19 ID NOW (Jenkins) Stat 08/26/20 20:40 IV insert/maintain Q4HR Intake and Output QSHIFTE Vital Signs Q4HR 08/27/20 09:00 Metoprolol Tartrate [Lopressor] 25 mg PO BID 08/27/20 13:25 HaloperidoL [Haldol] 0.5 mg PO ONCE ONE 08/27/20 13:38 Haloperidol Lactate [Haldol] 0.5 mg IV ONCE ONE 08/27/20 21:00 Metoprolol Tartrate [Lopressor] 50 mg PO BID 08/28/20 05:28 BMP [Basic Metabolic Panel Fasting] Routine Complete Blood Count Auto Diff Routine Laboratory Last Values WBC 7.6 X10*3/uL (4.8-10.8) 08/28/20 05:28 RBC 4.16 X10*6/uL (4.20-5.50) L 08/28/20 05:28 Hgb 12.8 g/dl (12.0-16.0) 08/28/20 05:28 Hct 38.9 % (37-47) 08/28/20 05:28 MCV 93.5 fL (80-98) 08/28/20 05:28 MCH 30.8 pg (27.0-33.0) 08/28/20 05:28 MCHC 32.9 g/dl (31.0-35.0) 08/28/20 05:28 RDW 12.1 % (11.0-16.0) 08/28/20 05:28 Plt Count 292 X10*3/uL (160-400) 08/28/20 05:28 MPV 11.6 fL (9.4-12.3) 08/28/20 05:28 Immature Gran % (Auto) 0.4 % (0.0-0.4) 08/28/20 05:28 Neut % (Auto) 66.5 % (45-73) 08/28/20 05:28 Lymph % (Auto) 16.8 % (20-40) L 08/28/20 05:28 Shackelford % (Auto) 8.7 % (2-11) 08/28/20 05:28 Eos % (Auto) 6.9 % (0-4) H 08/28/20 05:28 Baso % (Auto) 0.7 % (0-2) 08/28/20 05:28 Lymph # (Auto) 1.3 X10*3/uL (1.2-4.9) 08/28/20 05:28 Shackelford # (Auto) 0.7 X10*3/uL (0.1-1.2) 08/28/20 05:28 Eos # (Auto) 0.5 X10*3/uL (0.0-0.4) H 08/28/20 05:28 Baso # (Auto) 0.1 X10*3/uL (0.0-0.2) 08/28/20 05:28 Abs Immat Gran (auto) 0.03 X10*3/uL (0.00-0.03) 08/28/20 05:28 Absolute Neuts (auto) 5.0 X10*3/uL (2.0-8.3) 08/28/20 05:28 Absolute Nucleated RBC 0.000 X10*3/uL (0.0-0.012) 08/28/20 05:28 Nucleated RBC % (auto) 0.0 /100WBC (0.0-0.2) 08/28/20 05:28 Smear Tech's Comments VERIFIED 08/26/20 11:23 PT 11.7 SEC (10.8-13.0) 08/26/20 11:23 INR 1.0 (0.9-1.1) 08/26/20 11:23 Sodium 142 mmol/L (135-145) 08/28/20 05:28 Potassium 3.6 mmol/l (3.3-5.1) 08/28/20 05:28 Chloride 100 mmol/L (96-108) 08/28/20 05:28 Carbon Dioxide 33 mmol/L (22-29) H 08/28/20 05:28 Anion Gap 13 (12-20) 08/28/20 05:28 BUN 15 mg/dL (9-16) 08/28/20 05:28 Creatinine 0.78 mg/dL (0.5-1.4) 08/28/20 05:28 Estim Creat Clear Calc 49.9 08/28/20 05:28 Estimated GFR > 60 08/28/20 05:28 Random Glucose 93 mg/dL (60-115) 08/26/20 11:23 Fasting Glucose 80 mg/dL (60-99) 08/28/20 05:28 Calcium 8.1 mg/dL (8.4-10.2) L 08/28/20 05:28 Magnesium 1.9 mg/dL (1.6-2.6) 08/26/20 11:23 Total Bilirubin 0.6 mg/dL (0.0-1.0) 08/26/20 11:23 Direct Bilirubin 0.3 mg/dL (0.0-0.5) 08/26/20 11:23 AST 20 U/L (5-31) 08/26/20 11:23 ALT 9 U/L (0-31) 08/26/20 11:23 Alkaline Phosphatase 77 U/L (39-117) 08/26/20 11:23 Total Creatine Kinase 370 U/L (26-140) H 08/26/20 11:23 Troponin I High Sens 21.0 ng/L (<3.5-17.0) H D 08/26/20 15:58 B-Natriuretic Peptide 177 pg/mL (<100) H 08/26/20 11:23 Total Protein 7.7 g/dL (6.5-8.0) 08/26/20 11:23 Albumin 3.6 g/dL (3.5-5.0) 08/26/20 11:23 Urine Color YELLOW 08/26/20 11:29 Urine Appearance HAZY 08/26/20 11:29 Urine pH 7.0 (5.0-8.0) 08/26/20 11:29 Ur Specific Monroe 1.010 (1.005-1.025) 08/26/20 11:29 Urine Protein NEG MG/DL (NEG-TRACE) 08/26/20 11:29 Urine Glucose (UA) NEG MG/DL (NEG) 08/26/20 11:29 Urine Ketones NEG MG/DL (NEG) 08/26/20 11:29 Urine Blood TRACE (NEG) 08/26/20 11:29 Urine Nitrite NEG (NEG) 08/26/20 11:29 Ur Leukocyte Esterase 1+ (NEG) H 08/26/20 11:29 Urine RBC 0-2 /HPF (0) 08/26/20 11:29 Urine WBC 1-4 /HPF (0-4) 08/26/20 11:29 Ur Squamous Epith Cells 1+ /LPF 08/26/20 11:29 Urine Bacteria TRACE /LPF 08/26/20 11:29 COVID-19 (ARELIS) Negative (Negative) 08/26/20 19:55 COVID-19 Clin Com See Note 08/26/20 19:55 Discharge Plan Discharge Patient Disposition: Home Health Service Referrals: [facility] [Other] Physician,Unknown [Primary Care Provider] - Discharge Medications: New diltiazem HCl [Cardizem CD] 120 mg capsule,extended release 24hr 120 mg PO DAILY Qty: 30 RF: 0 Continued atorvastatin 10 mg tablet 1 tab PO DAILY RF: 0 lisinopril 5 mg tablet 1 tab PO DAILY RF: 0 Discontinued metoprolol tartrate 25 mg tablet 1 tab PO BID RF: 0 Discharge Orders: Discharge Order (Routine); Ordered 08/28/20 Ordered By: Rasheed Juarez Diet: advance to usual diet Activity on Discharge: As tolerated Patient Instructions: Diltiazem (By mouth) Visit Report Forms: Patient Portal Discharge page Care Plan Goals: avoid falls Health Concerns: fall risk Plan of Treatment: changed metoprolol to cardizem, home pt
--- NOTE | 2020-08-28 15:06 | PC.NURSE ---
0900 heart rate elevated to 170-180 when working with PT. does get anxious and agitated at times. Assisted to chair and after approx 3 min HR down to 117. 1400 pocketed spring assembler and hospitalist aware.
--- NOTE | 2020-08-28 15:26 | MHC.CM.PN ---
CM met with pt to discuss DC. Pt unable to tell t/w where the keys to her home are but says there are people to help but does not clarify who those people are. RACHEL attempted to contact staff at [facility] however it went to a, automated directory. RACHEL called pts son, Filipe ([phone]) who reports the staff at [facility] keeps a loomis to each apartment in case they have to go in so they would be able to let the pt in when she arrives. Pt will return to [facility] today via [facility] with a referral to [facility] for home PT
[2020-08-28] MEDS: dilTIAZem HCL CD 120 MG CAP.ER.DEG PO (15:37)
--- NOTE | 2020-08-28 16:24 | MHC.CM.PN ---
pts DC held until tomorrow. Pt requires bubble packed meds from [facility] which cannot be arranged until tomorrow morning. CM will contact [facility] tomorrow morning for med delivery by early afternoon and plan to DC once meds are delivered to pts [facility]
--- NOTE | 2020-08-28 16:30 | PC.NURSE ---
RN spoke with pt's son ALBERT regarding discharge and a new medication Cadrizem. There is no services at home to give the pt the right medication tonight. Pt has prefilled meds at home and there is nobody to changed the prefilled meds at home for tonight and tommorow morning. RN sopke with [facility] returned case inspector and discharge is being cancelled for tonight.
--- NOTE | 2020-08-28 17:29 | PC.NURSE ---
heart rhythm sinus arrhythmia with burs of PAT's, heart rate 140'-160's , DR Juarez was notified
--- NOTE | 2020-08-28 17:47 | PC.NURSE ---
Tachycardia: RN spoke with DR Juarez ,per MD no intervention at this time
--- NOTE | 2020-08-28 20:49 | ECG_ITS ---
Test Reason : afib Blood Pressure : / mmHG Vent. Rate : 119 BPM Atrial Rate : 101 BPM P-R Int : 000 ms QRS Dur : 086 ms QT Int : 332 ms P-R-T Axes : 000 020 088 degrees QTc Int : 467 ms Atrial fibrillation with rapid ventricular response Septal infarct , age undetermined ST depression in Inferior leads Anterolateral leads Abnormal ECG No previous ECGs available Referred By: Rasheed Juarez Electronically Signed By:HIPOLITO VASQUEZ MD
[2020-08-28] MEDS: Metoprolol Tartrate 5 MG/5 ML VIAL IVPUSH (21:05)
[2020-08-28] MEDS: Atorvastatin Calcium 10 MG TABLET PO (21:26)
--- NOTE | 2020-08-28 21:31 | PC.NURSE ---
Afib with RVR ,SVT [address] Riley was notified, Metoprolol [address] Riley. During the medication adminstration heeart rate dropped to 70 and stayed in 70's . Dr Barfield was notified. Pt received only 2.5 mg of Metoprolol IV push . EKG done and showed afib with RVR. After 1/2 hr of Metoprolol administration ,heart rate is 80'-90's afib
--- NOTE | 2020-08-28 23:18 | PC.NURSE ---
pt became anxiuos and agitated , heart rate up to 150's, pt screeming,yelling, wants to go to [facility]. DR Riley was notified
[2020-08-29] VITALS (12 sets, daily range): BP systolic 118–175; BP diastolic 53–86; PULSE 63–160; RESP 2–20; TEMP 35.7–36.6; O2SAT 94–98
--- NOTE | 2020-08-29 00:10 | MHC.PIE ---
P.AGITATED AND COMBATTIVE,ELEVATED HR I.PT WITH INCREASED AGITATION.COMBATTIVE,ATTEMPTING TO HIT STAFF,THROWING THINGS AT STAFF.CONFUSED.SECURITY CALLED AND NOTIFIED.ORDER FOR SOFT RESTRAINTS AND ATIVAN 0.5MG IV GIVEN.HR ELEVATED,STACH WITH FREQ PAC'S,HR 160-170.ORDER FOR LOPRESSOR 2.5MG IV GIVEN. E.CONT TO MONITOR
[2020-08-29] MEDS: 0.9 % Sodium Chloride Flush 3 ML SYRINGE IVFLUSH ×2 (00:12→09:20)
[2020-08-29] MEDS: LORazepam 2 MG/ML VIAL 0.5 MG IVPUSH (00:12)
--- NOTE | 2020-08-29 00:31 | P.EN_ITS ---
Event Note Date of Service: 08/29/20 Event Note: received Tegretol except patient's owning, very aggressive to wards nursing staff, taking of her alarm security or surveillance monitor, tachycardic, very confused, non directable. Patient given 0.5 mg of Ativan, Lopressor is also order for tachycardia in the 150s. Hemodynamically stable otherwise. Haldol for delirium if necessary
--- NOTE | 2020-08-29 00:31 | PM.EVENT ---
Event Note Date of Service: 08/29/20 Event Note: received Tegretol except patient's sundowning, very aggressive towards nursing staff, taking of her clinical research monitor, tachycardic, very confused, non directable. Patient given 0.5 mg of Ativan, Lopressor is also order for tachycardia in the 150s. Hemodynamically stable otherwise. Haldol for delirium if necessary
[2020-08-29] MEDS: Metoprolol Tartrate 5 MG/5 ML VIAL 2.5 MG IVPUSH (00:52)
--- NOTE | 2020-08-29 01:10 | MHC.PIE ---
P.CONFUSION,RESTLESS I.SEEN BY ,REMAINS RESTLESS,ATTEMPTING TO GET OOB.MED WITH HALDOL 1MG IV PER MD ORDER.HR IMPROVING TO 110'S. E.CONT TO MONITOR
[2020-08-29] MEDS: Haloperidol Lactate 5 MG/ML VIAL 1 MG IVPUSH (01:24)
--- NOTE | 2020-08-29 02:10 | MHC.PIE ---
P.SLEEPING I.RESTING QUIETLY,HR IMPROVED TO 90'S,BP 126/58.RESTRAINTS RELEASED. E.CONT TO MONITOR
--- NOTE | 2020-08-29 08:46 | MHC.CM.PN ---
CURRENT DC PLAN IS TO RETURN TO [facility] TODAY WITH [facility] TO PROVIDE HOME PT. REBECCA, PTS PHARMACY OPENS AT 0900 HOURS. CM WILL CONTACT THEM AT THAT TIME TO CONFIRM THEY ARE ABLE TO PREPARE PTS MEDICATION BUBBLE PACKS TO REFLECT HER MEDICATION CHANGES AND DELIVER THEM TODAY. ONCE MEDICATION DELIVERY IS VERIFIED, PT WILL DISCHARGE HOME VIA [facility]. BOTH, PTS SON, DENAE AND [facility] ARE AWARE THE PLAN IS TO DC PT TODAY. CM WILL CONFIRM DC WITH DENAE ONCE A TIME IS KNOWN.
[2020-08-29] MEDS: dilTIAZem HCL CD 120 MG CAP.ER.DEG PO (09:19)
[2020-08-29] MEDS: Heparin Sodium,Porcine 5,000 UNIT/ML VIAL 5000 UNIT SUBCUT (09:19)
[2020-08-29] MEDS: lisinopriL 5 MG TABLET PO (09:19)
--- NOTE | 2020-08-29 10:56 | MHC.CM.PN ---
RACHEL spoke to Sreedhar at [facility] who reports they prepare the pts bubble packed meds and will have them ready and delivered Monday. She is unable to complete the order today. RACHEL spoke to who reports pt can continue her current meds until then. Per conversation with son yesterday, pt does not do well in new environments and will likely improve once in her home. MD will add medication plan to DC instructions which will be sent home with pt. Once a DC time is determined, RACHEL will contact pts son.
--- NOTE | 2020-08-29 11:44 | PM.PNCARD ---
Subjective Subjective Date of Service: 08/29/20 Interval history: Awake, asymptomatic. She has been agitated yesterday and was going in and out of atrial tachycardia. Review of Systems Review of Systems Limited due to memory issues, denying any symptoms. Physical Exam Vital Signs: Last Vital Signs Temp 97.9 F 08/29/20 08:00 Pulse 92 08/29/20 08:00 Resp 18 08/29/20 08:00 BP 159/62 H 08/29/20 08:00 Pulse Ox 98 08/29/20 08:00 Body Mass Index 24.0 GENERAL APPEARANCE: in no acute distress HEAD: normocephalic, atraumatic. NECK/THYROID: no carotid bruit, no jugular venous distention. SKIN: no suspicious lesions, warm and dry. HEART: no murmurs, regular rate and rhythm, S1, S2 normal. LUNGS: clear to auscultation bilaterally. ABDOMEN: normal, bowel sounds present, soft, nontender, nondistended. EXTREMITIES: Abrasion right leg PERIPHERAL PULSES: equal. NEUROLOGIC: nonfocal. PSYCH: mood/affect full range. Results Labs and Meds Result diagrams: 08/28/20 05:28 08/28/20 05:28 Progress Note: A&P Assessment and plan (1) Vascular dementia with behavior disturbance: Status: Acute (2) Atrial tachycardia: Status: Acute (3) Fall: Status: Acute Assessment and Plan: 75 year female who is presenting with the mechanical fall. She has been noticed to have runs of atrial tachycardia and mildly abnormal troponin. I do not think she has ACS. No further workup is required for that. In terms of atrial tachycardia she has been in and out of that rhythm and has no symptoms. I doubt that atrial tachycardia is the cause for her presentation. Stop further metoprolol and continue cardizem CD. Signing off. Thank you for allowing me to participate in the care of your patient. Please feel free to contact me if you have any questions. Fall Risk Details Current Medications: Current Medications Generic Name Dose Route Start Last Admin Trade Name Freq PRN Reason Stop Dose Admin Acetaminophen 650 mg 08/26/20 20:40 Acetaminophen 325 Mg Tablet PO Q6H PRN Pain, Mild (Pain Scale 1-3) Al Hydroxide/Mg Hydroxide 30 ml 08/26/20 20:40 Magnesium Hydrox/Alum Hydrox 30 Ml Oral.Susp PO Q4H PRN Heartburn/Nausea Atorvastatin Calcium 10 mg 08/27/20 21:00 08/28/20 21:26 Atorvastatin Calcium 10 Mg Tablet PO 10 mg BEDTIME LAUREANO Administration Diltiazem HCl 120 mg 08/28/20 18:00 08/29/20 09:19 Diltiazem Hcl Cd 120 Mg Cap.Er.Deg PO 120 mg DAILY LAUREANO Administration Protocol Heparin Sodium (Porcine) 5,000 unit 08/26/20 21:00 08/29/20 09:19 Heparin Sodium,Porcine 5,000 Unit/Ml Vial SUBCUT 5,000 unit Q12H LAUREANO Administration Lisinopril 5 mg 08/27/20 09:00 08/29/20 09:19 Lisinopril 5 Mg Tablet PO 5 mg DAILY LAUREANO Administration Protocol Magnesium Hydroxide 30 ml 08/26/20 20:40 Milk Of Magnesia 30 Ml Oral.Susp PO DAILY PRN Constipation Pharmacy Consult 1 each 08/26/20 16:49 Consult Rx Perform Med Rec MISCELLANE ONCE PRN Consult order Sodium Chloride 3 ml 08/27/20 00:00 08/29/20 09:20 0.9 % Sodium Chloride Flush 3 Ml Syringe IVFLUSH 3 ml QSHIFT LAUREANO Administration Time Spent With Patient Time: Total time spent is greater than 50% in coordination of care (as documented) at patient's floor/unit and/or counseling patient: Time with patient: less than 15 minutes
== END 2020-08-29 13:42 | disposition home health service (06) ==
LOC: HO.ED 17:05 → HO.IMC 08-27 07:19
PROVIDERS: Physician Assistant Medical; Admitting Provider Internal Medicine; Emergency Provider Internal Medicine; Visit Provider Internal Medicine
DX: I47.1 Supraventricular tachycardia (principal); F01.51 Vascular dementia, unspecified severity, with behavioral disturbance; S80.211A Abrasion, right knee, initial encounter; W01.0XXA Fall on same level from slipping, tripping and stumbling without subsequent striking against object, initial encounter; Y93.01 Activity, walking, marching and hiking; Y92.9 Unspecified place or not applicable; Y99.8 Other external cause status; I10 Essential (primary) hypertension; E78.00 Pure hypercholesterolemia, unspecified; M30.1 Polyarteritis with lung involvement [Churg-Strauss]; Z20.828 Contact with and (suspected) exposure to other viral communicable diseases; Z91.81 History of falling; Z88.0 Allergy status to penicillin; Z88.8 Allergy status to other drugs, medicaments and biological substances; Z79.899 Other long term (current) drug therapy
CPT/HCPCS: 36415; 70450; 71046; 71275; 72125; 73521; 73564; 73610; 80048; 80076; 81001; 82550; 83735; 83880; 84484; 85025; 85610; 87086; 87635; 93005; 96360; 97162; 99219; 99285; 99291; J2060; Q9967

== ENCOUNTER 2021-12-27 16:09 | Emergency (ER) | payer MEDICARE, SELFPAY ==
--- NOTE | 2021-12-27 16:31 | ED.GENADULT ---
HPI - General Adult General Chief complaint: General Medical Stated complaint: AMS FROM ASSIST LIVING PER EMS Time Seen by Provider: 12/27/21 16:23 Source: patient and EMS Mode of arrival: EMS Limitations: no limitations History of Present Illness HPI narrative: Patient comes to the emergency room by EMS from assisted living. Seems that EMS was called for altered mental status. The patient explains that she had a verbal argument at the assisted living facility. Patient states she was not physically aggressive. Patient denies any complaints. Of note, patient is known to have vascular dementia Related Data Home Medications Medication Instructions Recorded Confirmed atorvastatin 10 mg tablet 1 tab PO DAILY 08/26/20 08/26/20 lisinopril 5 mg tablet 1 tab PO DAILY 08/26/20 08/26/20 Previous Rx's Medication Instructions Recorded diltiazem HCl 120 mg 120 mg PO DAILY #30 cap 08/28/20 capsule,extended release 24 hr (Cardizem CD) Allergies Allergy/AdvReac Type Severity Reaction Status Date / Time erythromycin base Allergy Mild VOMITING Verified 08/26/20 21:18 [Erythromycin Base] Penicillins Allergy Mild HIVES Verified 08/26/20 21:18 amoxicillin Allergy Unknown Hives Verified 08/26/20 21:18 penicillin V Allergy Unknown Hives Verified 08/26/20 21:18 Biphosphonates Allergy Unknown Unknown Uncoded 08/26/20 21:18 Review of Systems Review of Systems: Constitutional : No Weight loss, No Fever, No Chills, No Night Sweats, No Fatigue, No Malaise ENT/Mouth : No Hearing loss, No Ear Pain, No Nasal Congestion, No Sinus Pain, No Hoarseness, No sore throat, No Rhinorrhea, No Swallowing Difficulty Eyes: No Eye Pain, No Swelling, No Redness, No Foreign Body, No Discharge, No Vision Changes Cardiovascular : No Chest Pain, No SOB, No Dyspnea on Exertion, No Orthopnea, No Edema, No Palpitations Respiratory : No Cough, No Sputum, No Wheezing, No Smoke Exposure, No Dyspnea Gastrointestinal : No Nausea, No Vomiting, No Diarrhea, No Constipation, No abdominal Pain, No Hematochezia, No Melena Genitourinary : no irregular bleeding, No Dysuria, No Urinary Frequency, No Hematuria, No Urinary Incontinence, No Urgency, No Flank Pain, No Urinary Flow Changes, No Hesitancy Musculoskeletal : No joint pain, No Myalgias, No Joint Swelling Skin : No Skin Lesions, No rash Neuro : No Weakness, No Numbness, No Paresthesias, No Loss of Consciousness, No Dizziness, No Headache Psych : No Anxiety/Panic, No Depression, No SI/HI/AH/VH, No Social Issues, Heme/Lymph: No Bruising, No Bleeding,No Lymphadenopathy Endocrine : No Polyuria, No Polydipsia, No Temperature Intolerance [facility] Past Medical History Medical History Atrial tachycardia Chronic back pain Churg-Cesar syndrome Dementia GERD (gastroesophageal reflux disease) High cholesterol Hypertension Vascular dementia with behavior disturbance Surgical History History of cholecystectomy History of laminectomy Social History Social History Household Members: None Housing: Assisted Living Facility Do you presently have visiting nurse or other home services: Yes Advance Directives: No Advance Directives Information Provided: No Physical Exam ED Vital Signs: Vital Signs - 24 hr 12/27/21 16:35 Temperature 98 F Pulse Rate 71 Respiratory Rate 18 Blood Pressure 140/100 H Pulse Oximetry 96 BMI result Body Mass Index 20.7 Const Other: Appearance: Alert. Oriented X3. No acute distress. Well-appearing Eyes: Pupils equal, round and reactive to light. ENT: Pharynx normal. Neck: Normal inspection. Neck supple. No lymph nodes noted. No crepitus CVS: Normal heart rate and rhythm. Pulses normal. Normal S1 and S2 Respiratory: No respiratory distress. Breath sounds normal. No Wheezing. No rales Abdomen: Soft and nontender. No rigidity. No distention. Skin: Skin warm and dry. Very dry skin in lower extremities, flaking Extremities: No lower extremity edema. No Lacerations. No Rash Neuro: Oriented X 3. No motor deficit. No sensory deficit. Moving all extremities. No slurred speech. CN 2 through 12 grossly intact Psych: calm, cooperative, normal affect Course Course Course Narrative: Patient agrees to have labs done and provide a urine sample. Patient has been here for almost 4 hours, labs have not been obtained. Patient has been unable to provide a urine sample. Patient seems a bit confused, still able to walk unassisted. Possibly sundowning at this time. Case management eval pending after labs have been obtained, pt will likely need a higher level of care Physician of nathan started at 19:[address] Sign out given to Dr. El Discharge Plan Discharge Clinical Impression: Vascular dementia with behavior disturbance Patient Disposition: Still a Patient Prescriptions: No [facility] atorvastatin 10 mg tablet 1 tab PO DAILY 0RF lisinopril 5 mg tablet 1 tab PO DAILY 0RF diltiazem HCl [Cardizem CD] 120 mg capsule,extended release 24hr 120 mg PO DAILY Qty: 30 0RF
[2021-12-27 16:35] VITALS: BP 140/100; BP 170/70; PULSE 120; PULSE 71; RESP 18; TEMP 36.6; O2SAT 96; O2SAT 97; BMI 20.7
--- NOTE | 2021-12-27 17:58 | PC.NURSE ---
PT VERY ANXIOUS AND DISORIENTED STANDING IN THE HALLWAY. SHE IS NOT ORIENTED TO PLACE OR TIME. SHE IS VISIBLE AGITATED AND TEARFUL. EASILY REDIRECTED BACK TO BED
[2021-12-27 20:51] VITALS: BP 147/76; PULSE 70; RESP 18; O2SAT 96
[2021-12-27 21:08] LABS: MANUAL DIFF FLAG NO
[2021-12-27 21:11] LABS: Basophils Percent Auto 0.4 % (0-2); Eosinophils Absolute Auto 1.3 X10*3/uL (0.0-0.4); Eosinophils Percent Auto 16.9 % (0-4); Hematocrit 41.1 % (37.0-47.0); Hemoglobin 13.7 g/dl (12.0-16.0); Imm Gran Abs Auto 0.02 X10*3/uL (0.00-0.03); Imm Gran Pct Auto 0.3 % (0.0-0.4); Lymphocytes Absolute Auto 1.5 X10*3/uL (1.2-4.9); Lymphocytes Percent Auto 19.5 % (20-40); Mean Corpuscular HGB Conc 33.3 g/dl (31.0-35.0); Mean Corpuscular Hemoglobin 31.1 pg (27.0-33.0); Mean Corpuscular Volume 93.2 fL (80.0-98.0); Mean Platelet Volume 10.9 fL (9.4-12.3); Monocytes Absolute Auto 0.9 X10*3/uL (0.1-1.2); Monocytes Percent Auto 11.6 % (2-11); Neutrophils Absolute Auto 3.8 x10*3/uL (2.0-8.3); Neutrophils Percent Auto 51.3 % (45-73); Platelet Count 244 X10*3/uL (160-400); Red Blood Count 4.41 X10*6/uL (4.20-5.50); Red Cell Distribution Width 13.3 % (11.0-16.0); White Blood Count 7.5 X10*3/uL (4.8-10.8)
--- NOTE | 2021-12-27 21:57 | MHC.CM.ED ---
CM met with patient at request of Dr. Bautista. Pt is from [place] [facility] in [place]. Pt has dementia. Pt is pleasant and cooperative, with obvious dementia. Poor historian. Does not know why she is here. HCP/son Filipe Elaine called. Message left to return call. CM spoke with nurses aide from [place] [facility], who states that the nurses during the day were concerned about AMS, that patient was not herself, was argumentative and threatening to hit others, but did not strike anyone. Pt was refusing to take her medications. This is not this patients normal behaviors. States that patient has her own room, has meds and ADL care, meals in the dining room and ambulates without difficulty. CM explained that medical work-up is not yet completed. Facility requests that patient not return to facility tonight. Reviewed about with Dr. Bautista. Pt to remain in ED tonight. CM will follow for d/c needs.
[2021-12-27 22:14] LABS: Alanine Aminotransferase 14 U/L (0-31); Albumin Level 3.5 g/dL (3.5-5.0); Alkaline Phosphatase 101 U/L (39-117); Anion Gap 12 (12-20); Aspartate Amino Transferase 29 U/L (5-31); Bilirubin Direct 0.2 mg/dL (0.0-0.5); Bilirubin Total 0.3 mg/dL (0.0-1.0); Blood Urea Nitrogen 20 mg/dL (9-16); Calcium 8.5 mg/dL (8.4-10.2); Carbon Dioxide 27 mmol/L (22-29); Chloride 109 mmol/L (96-108); Creatinine Clr Calc Pharmacy 48.2; Estimated Glomerular Filt Rate > 60; Glucose Random 91 mg/dL (60-115); Potassium 3.8 mmol/L (3.3-5.1); Sodium 144 mmol/L (135-145); Total Protein 7.2 g/dL (6.5-8.0)
[2021-12-27 22:44] VITALS: BP 159/61; PULSE 70; RESP 18; TEMP 36.6; O2SAT 98
[2021-12-28 04:27] VITALS: BP 168/109; PULSE 98; RESP 18; TEMP 36.6; O2SAT 97
[2021-12-28] MEDS: LORazepam 1 MG TABLET PO (05:06)
[2021-12-28 06:10] LABS: Appearance Urine CLEAR; Color Urine YELLOW; Glucose Urine UA NEG (NEG); Leukocyte Esterase Urine NEG (NEG); Nitrite Urine NEG (NEG); UACC Culture Trigger NO; Urine Blood TRACE (NEG); Urine Ketones NEG (NEG); Urine Protein NEG (NEG-TRACE)
[2021-12-28 06:21] VITALS: BP 176/69; PULSE 78; RESP 18
[2021-12-28 06:22] LABS: Bacteria Urine TRACE /LPF; RBC Urine 0-2 /HPF (0); Squamous Epithelial Cell Urine TRACE /LPF; WBC Urine 0-2 /HPF (0-4)
[2021-12-28 06:45] VITALS: BP 171/72; PULSE 84; RESP 14; O2SAT 94
[2021-12-28 07:57] VITALS: BP 160/70; PULSE 64; RESP 14; O2SAT 96
[2021-12-28 08:14] VITALS: BP 150/74; PULSE 66; RESP 20; TEMP 36.5; O2SAT 97
--- NOTE | 2021-12-28 08:54 | PHA.MEDREC ---
Pharmacy Consult ? Medication Reconciliation Pharmacy has completed the medication reconciliation. No remarkable issues. Palma Lu, KahlilD
--- NOTE | 2021-12-28 09:20 | MHC.CM.ED ---
Patient remains in ER. Currently calmly siting in bed. Received telephone call from patient's son/HCP Gio. Updated about reason for ER visit and work up findings. T/W explained patient would most likely go back to [place] [facility]. Gio can be reached via telephone at [phone]. T/W attempted to speak to Sandra at [facility]. Left message requesting return telephone call. Continue to monitor for d/c needs.
--- NOTE | 2021-12-28 09:34 | MHC.CM.ED ---
Received return telephone call from Khadijah at [facility]. Work up findings discussed. Patient can return to their facility. [facility] booked. Med nec with chart. Patient, son Sara Powers RN and Dr Suarez aware. Continue to monitor for d/c needs.
[2021-12-28 10:24] VITALS: BP 138/64; PULSE 58; RESP 16
== END 2021-12-28 11:06 | disposition skilled nursing facility (03) ==
PROVIDERS: Emergency Provider Emergency Medicine; PCP Physician Assistant
DX: F01.51 Vascular dementia, unspecified severity, with behavioral disturbance (principal); F05 Delirium due to known physiological condition; R45.1 Restlessness and agitation; I10 Essential (primary) hypertension; E78.5 Hyperlipidemia, unspecified
CPT/HCPCS: 36415; 80048; 80076; 81001; 85025; 99284